=== PATIENT | female | born 1990 | race African-American/Black ===

== ENCOUNTER 2021-12-18 10:18 | Emergency (ER) | payer MEDICAID, OTHER ==
[~2021-12-18] VITALS: Ht 160 cm; Wt 75.0 kg
[2021-12-18] MEDS ORDERED: KETOROLAC 60MG/2ML VIAL IM ONE (10:30)
[2021-12-18] MEDS ORDERED: DEXAMETHASONE 10 MG/ML VIAL IV ONE (10:30)
[2021-12-18 10:54] LABS: HEMOGLOBIN. 14.3 g/dL (12.0-16.0); MEAN CORPUSCULAR HEMOGLOBIN 26.6 pg (28.0-32.0); MEAN CORPUSCULAR VOLUME 81.8 fL (81.0-99.0); PLATELET 315 x1000/uL (130-400); RED BLOOD CELL COUNT 5.38 mill/uL (4.2-5.4); RED CELL DISTRIBUTION WIDTH 13.5 % (11.6-14.6)
[2021-12-18 10:55] LABS: CHLORIDE 107 mEq/L (98-107)
[2021-12-18 10:57] LABS: INR 1.1; PROTHROMBIN TIME 11.6 sec (9.6-11.0)
[2021-12-18 11:24] LABS: ATYPICAL LYMPHOCYTES 1; PLATELET ESTIMATE NORMAL
[2021-12-18] MEDS ORDERED: IOHEXOL-300 100 ML BOTTLE ONE (12:35)
[2021-12-18] MEDS: AMPICILLIN SOD/SULBACTAM NA 3 G in SODIUM CHLORIDE 0.9% 100 ML IV SCH ×2 (13:15→22:29)
[2021-12-18 17:11] VITALS: BP 140/99
[2021-12-18] MEDS ORDERED: KETOROLAC 15MG/ML VIAL IV ONE (17:15)
[2021-12-18] MEDS ORDERED: MORPHINE SULFATE 4 MG/ML CPJ (NOT FOR IM USE) IV ONE (20:15)
[2021-12-19] MEDS ORDERED: MORPHINE SULFATE 4 MG/ML CPJ (NOT FOR IM USE) IV ONE (00:30)
[2021-12-19] MEDS ORDERED: ONDANSETRON HCL 4MG/2ML INJ IV STA (03:47)
[2021-12-19] MEDS ORDERED: MORPHINE SULFATE 4 MG/ML CPJ (NOT FOR IM USE) IV STA (03:47)
[2021-12-19] MEDS: AMPICILLIN SOD/SULBACTAM NA 3 G in SODIUM CHLORIDE 0.9% 100 ML IV SCH ×2 (04:55→07:15)
[2021-12-19] MEDS ORDERED: DEXAMETHASONE 4MG/ML 1ML VIAL IV ONE (10:45)
[2021-12-19] MEDS ORDERED: IBUP-2029 MT (11:14)
[2021-12-19] MEDS ORDERED: CLIN300C12 MT (11:14)
== END 2021-12-19 12:21 | disposition home or self-care (01) ==
LOC: ER 10:18
DX: J36 Peritonsillar abscess (principal); Z20.822 Contact with and (suspected) exposure to COVID-19
CPT/HCPCS: 36415; 70491; 80053; 83605; 85025; 85610; 87070; 87077; 87426; 87430; 96365; 96366; 96372; 96375; 96376; 99285; J0295; J1100; J1885; J2270; J2405; J7050; Q9967

== ENCOUNTER 2022-06-04 01:20 | Emergency (ER) | payer MEDICAID ==
[~2022-06-04] VITALS: Ht 160 cm; Wt 84.0 kg
[~2022-06-04 01:20] MED LIST: CLIN-194 MT; IBUP-2029 MT
[2022-06-04 06:40] VITALS: BP 167/124
[2022-06-04] MEDS: KETOROLAC 30MG/ML VIAL IV STA (06:40)
[2022-06-04] MEDS ORDERED: SODIUM CHLORIDE 0.9% 1,000 ML IV ONE (06:45)
[2022-06-04] MEDS ORDERED: AMOX1TAB16 MT (07:21)
[2022-06-04] MEDS ORDERED: IBUP-2030 MT (07:23)
[2022-06-04] MEDS: AMPICILLIN SOD/SULBACTAM NA 3 G in SODIUM CHLORIDE 0.9% 100 ML IV SCH (07:43)
[2022-06-04] MEDS: DEXAMETHASONE 10 MG/ML VIAL IV ONE (07:43)
== END 2022-06-04 08:12 | disposition home or self-care (01) ==
LOC: ER 01:20
DX: K04.7 Periapical abscess without sinus (principal)
CPT/HCPCS: 96365; 96375; 99284; J0295; J1100; J1885; J7030; J7050

== ENCOUNTER 2022-10-28 10:53 | Emergency (ER) | payer MEDICAID ==
[~2022-10-28] VITALS: Ht 157.5 cm; Wt 82.0 kg
[~2022-10-28 10:53] MED LIST changes: +AMOX1TAB16 MT; +IBUP-2030 MT
[2022-10-28 11:35] VITALS: BP 129/96
[2022-10-28] MEDS ORDERED: ACETAMINOPHEN 325MG TABLET PO ONE (12:00)
[2022-10-28] MEDS ORDERED: ACETAMINOPHEN 325MG TABLET PO SCH (14:00)
== END 2022-10-28 15:21 | disposition left against medical advice (07) ==
LOC: ER 10:53
DX: R51.9 Headache, unspecified (principal); I10 Essential (primary) hypertension; F17.210 Nicotine dependence, cigarettes, uncomplicated; Z20.822 Contact with and (suspected) exposure to COVID-19
CPT/HCPCS: 81025; 87426; 99283; C9803